=== PATIENT | female | born 1970 | race Asian ===

== ENCOUNTER 2024-07-29 21:21 | Emergency (ER) | payer OTHER, SELFPAY ==
[2024-07-29 21:27] VITALS: BP 143/80
--- NOTE | 2024-07-29 22:12 | ED.GENMED ---
History of Present Illness
<DIONE Quick - Last Filed: 07/30/24 00:35>
General
Chief Complaint: Facial Problem
Exam Limitations: none
Time Seen by Provider: 07/29/24 21:43
Nursing documentation reviewed up to this point in time: agreed with
History of Present Illness
History of Present Illness:
Patient is a 53-year-old female who complains of right-sided facial pain. She reports she started with pain in the front of her right ear a couple weeks ago however this has progressively gotten worse. She now feels that throughout the right side
of her face worse when she chews. She saw her dentist and was placed on amoxicillin and took 3 doses yesterday 3 doses today and has been taking ibuprofen but continues to complain of pain. In addition to complains of mild facial swelling. She
reports she has felt mildly feverish but does not believe she had a temperature. She denies any visual deficit or change
Review of Systems
<DIONE Quick - Last Filed: 07/30/24 00:35>
Review of Systems
Allergies reviewed?: Yes
All Other Systems: ROS reviewed and negative except as documented in HPI and ROS
Constitutional: Reports no symptoms; Denies fatigue or chills
EENT: Reports other (right sided facial pain / pain around right ear )
Respiratory: Reports no symptoms
Cardiac: Reports no symptoms
ABD/GI: Reports no symptoms
Musculoskeletal: Reports no symptoms
Skin: Reports no symptoms
Neurological: Reports no symptoms
Psychiatric: Reports no symptoms
Phy Exam
<DIONE Quick - Last Filed: 07/30/24 00:35>
General Physical Exam
General Presentation: no apparent distress
General age: appears stated age
General Skin: warm and dry
General Habitus: normal
General Mental: alert
General Hydration: appears well hydrated
ENT Exam
ENT Exam: EOMI, TM's normal, pharynx normal, neck supple and other (no trismus no obvious swelling to face, normal right TM no tooth pain or gum swelling pain over TMJ with opening mouth non tender over temporal region )
Eye Exam
Eye Exam: PERRL and EOMI
Eye Exam General: PERRL: bilateral and EOM intact: bilateral
Pupil Exam: Bilateral: round and reactive
Neurological Exam
Neurological Exam: alert and oriented x3
Musculoskeletal Exam
Musculoskeletal Exam: full ROM
Skin Exam
Skin Exam: normal color and warm/dry
Psychiatric Exam
Psychiatric Exam: normal mood/affect
Course
<DIONE Quick - Last Filed: 07/30/24 00:35>
Orders/Labs/Results
Orders:
Orders
07/29/24 22:13
CT Facial Bones W/ Iv Contrast Urgent
Comment:
Reason For Exam: right sided facial pain
IV Insert/Care/Rem.- Treatment PRN
0.9% Sodium Chloride 1000 ml [Nss] 1,000 ml IV BOLUS
07/29/24 22:24
Complete Blood Count/With Diff Urgent
Comprehensive Metabolic Panel Urgent
Erythrocyte Sed Rate Urgent
Comment: ADD ON
07/29/24 22:33
Add On- LAB Urgent
Tests Added?: sed rate
07/30/24 00:29
Prednisone [Deltasone] 50 mg PO NOW STA
Abnormal Lab Results
07/29/24
22:24
RBC 3.95 L 10^6/uL
(4.20-5.40)
Hgb 11.9 L g/dL
(12.0-16.0)
Hct 36.0 L %
(37.0-47.0)
MPV 13.5 H fL
(7.4-10.4)
ESR 23 H mm/hour
(0-20)
Chloride 108 H mmol/L
(98-107)
Creatinine 0.5 L mg/dL
(0.6-1.0)
Glucose 104 H mg/dl
(70-99)
07/29/24 22:24
07/29/24 22:24
Vital Signs
Initial and Last Documented VS:
Initial Vital Signs
Temp Pulse Resp BP Pulse Ox
97.7 F 74 20 143/80 99
07/29/24 21:27 07/29/24 21:27 07/29/24 21:27 07/29/24 21:27 07/29/24 21:27
Last Documented Vital Signs
Temp Pulse Resp BP Pulse Ox
97.7 F 74 20 140/86 100
07/29/24 21:27 07/29/24 21:27 07/29/24 21:27 07/29/24 22:28 07/29/24 22:45
Lathe Setup Operator consulted with Physician
Lathe Setup Operator consulted with physician?: Yes
Name of Physician Consulted: Billie
<Bridger Wise, DO - Last Filed: 07/30/24 00:32>
Orders/Labs/Results
Orders:
Orders
07/29/24 22:13
CT Facial Bones W/ Iv Contrast Urgent
Comment:
Reason For Exam: right sided facial pain
IV Insert/Care/Rem.- Treatment PRN
0.9% Sodium Chloride 1000 ml [Nss] 1,000 ml IV BOLUS
07/29/24 22:24
Complete Blood Count/With Diff Urgent
Comprehensive Metabolic Panel Urgent
Erythrocyte Sed Rate Urgent
Comment: ADD ON
07/29/24 22:33
Add On- LAB Urgent
Tests Added?: sed rate
07/30/24 00:29
Prednisone [Deltasone] 50 mg PO NOW STA
Abnormal Lab Results
07/29/24
22:24
RBC 3.95 L 10^6/uL
(4.20-5.40)
Hgb 11.9 L g/dL
(12.0-16.0)
Hct 36.0 L %
(37.0-47.0)
MPV 13.5 H fL
(7.4-10.4)
ESR 23 H mm/hour
(0-20)
Chloride 108 H mmol/L
(98-107)
Creatinine 0.5 L mg/dL
(0.6-1.0)
Glucose 104 H mg/dl
(70-99)
07/29/24 22:24
07/29/24 22:24
Vital Signs
Initial and Last Documented VS:
Initial Vital Signs
Temp Pulse Resp BP Pulse Ox
97.7 F 74 20 143/80 99
07/29/24 21:27 07/29/24 21:27 07/29/24 21:27 07/29/24 21:27 07/29/24 21:27
Last Documented Vital Signs
Temp Pulse Resp BP Pulse Ox
97.7 F 74 20 140/86 100
07/29/24 21:27 07/29/24 21:27 07/29/24 21:27 07/29/24 22:28 07/29/24 22:45
<DIONE Quick - Last Filed: 07/30/24 00:35>
MDM/Problems Addressed
Differential Diagnosis Includes:
Not limited to abscess, TMJ
MDM/Problems Addressed:
Patient is a 51-year-old female who complains of right-sided facial pain. She started complaining of pain in front of her right ear and was not sure if it was her teeth this started a couple weeks ago however symptoms have worsened. She saw her
dentist several days ago and has taken 6 doses of amoxicillin. She denies any fever chills but does continue to complain of right-sided facial pain worse with chewing on exam she has no acute distress no obvious facial swelling no fever no trismus.
No visual deficit nontender over temporal artery not consistent with temporal arteritis patient describes pain around the temporomandibular joint
CT neg for abscess . Pt eval by DR Wise ; possibilities include TMJ will DC with steroids. Patient to continue on antibiotics.
<DIONE Quick - Last Filed: 07/30/24 00:35>
*Pulse Oximetry
Patient hypoxic: no
*Critical Care Note
Total Time (30-74mins, 75-104mins- exclusive of procedures): Not Applicable
ED Attending Note
<DIONE Quick - Last Filed: 07/30/24 00:35>
-
Portions of this chart may have been created with voice recognition software.� Occasional wrong word or��sound alike� substitutions may have occurred due to the inherent limitations of voice recognition software.
<Bridger Wise DO - Last Filed: 07/30/24 00:32>
ED Attending Note
Patient seen and examined by attending physician: Yes
I performed the substantive portion of visit, reviewed & personally made and approve the management plan that is documented in note by myself or ANGELES.: Yes
ED Attending Note:
Patient is a healthy 53-year-old female who does not smoke or have any medical problems who presents with pain on the right side of her face. Started few weeks ago in the right ear and is progressed to involve the whole right side of her face.
Pain is made worse with chewing. Patient saw dentist and was placed on amoxicillin. Patient denies any difficulty swallowing. Patient denies any visual or balance issues. Patient denies any decrease in hearing or vertigo. On physical exam
patient is neurologically intact. TMs intact and clear. Nares patent and clear. Patient's extraocular muscles intact. Patient seems to have some point tenderness around the right TMJ. There is no tenderness with traction on the earlobe or
palpating the tragus. Patient's dentition and gums are unremarkable. Sublingual area is unremarkable. Palpation of the neck is supple without adenopathy in the submandibular region or in the anterior cervical region. Stensen's duct is without
lesion. Dentition nontender with palpation no apparent caries. Appears patient has TMJ. Workup is negative. Patient referred to ENT.
Discharge Plan
Departure
Patient Disposition: Home (Routine Discharge)
Date of Disposition: 07/30/24
Time of Disposition: 00:32
Patient with high blood pressure during this ER visit?: Yes
Covid-19: Not Applicable
Discharge Problem:
TMJ (temporomandibular joint disorder)
Instructions: Temporomandibular joint (TMJ) disorders
Prescriptions:
New
prednisone 50 mg tablet
50 mg PO DAILY Qty: 5 0RF
Referrals:
Flavio Sanchez MD [Family Provider] -
Hi Moise MD [Active] -
Activity Restrictions/Additional Instructions:
As discussed it is recommended that you see sugarcane research technician for evaluation for possible TMJ. A prescription for steroids was sent to your pharmacy to take for the next 5 days. Take as directed. Return if any worsening of symptoms,
if increased pain fever chills.
Interventions
Interventions:
*Risk Screen - Suicide Last Done: 07/29/24 21:31
*General Assessment Last Done: 07/29/24 23:00
ED- Neurological Assessment Last Done: 07/29/24 23:00
ED-Skin Assessment Last Done: 07/29/24 23:00
Discharge Date and Time
Print Language: MALIAN
[2024-07-29] MEDS: NSS 1000 IV (22:17)
[2024-07-29 22:28] VITALS: BP 140/86
[2024-07-29 22:41] LABS: % Basophils 0.5 % (0-2); % Eosinophils 0.7 % (0-6); % Immature Granulocytes 0.2 % (0-0.5); % Lymphocytes 38.3 % (20.5-51.1); % Monocytes 7.6 % (1.7-9.3); % Neutrophils 52.7 % (42.2-75.2); Absolute Lymphocytes 2.3 10^3/uL (1.2-3.4); Absolute Monocytes 0.5 10^3/uL (0.1-0.6); Absolute Neutrophils 3.1 10^3/uL (1.4-6.5); Hemoglobin 11.9 g/dL (12.0-16.0); Mean Corp Hgb Conc. 33.1 g/dL (33.0-37.0); Mean Corpuscular Hgb 30.1 pg (27.0-31.0); Mean Corpuscular Volume 91.1 fL (81.0-99.0); Mean Platelet Volume 13.5 fL (7.4-10.4); Nucleated Red Blood Cells % 0 %; Platelet Count 133 10^3/uL (130-400); Red Blood Cell Count 3.95 10^6/uL (4.20-5.40); Red Cell Dist. Width 12.9 % (11.5-14.5); White Blood Cell Count 5.9 10^3/uL (4.8-10.8)
[2024-07-29 22:52] LABS: ALT (SGPT) 24 U/L (0-35); AST (SGOT) 34 U/L (14-36); Alkaline Phosphatase 101 U/L (38-126); Blood Urea Nitrogen 17 mg/dl (7-17); Calcium 9.1 mg/dl (8.4-10.2); Carbon Dioxide 25 mmol/L (22-30); Chloride 108 mmol/L (98-107); Glucose 104 mg/dl (70-99); Potassium 4.5 mmol/L (3.5-5.1); Sodium 141 mmol/L (135-145); Total Bilirubin 0.3 mg/dl (0.2-1.3); Total Protein 6.9 g/dl (6.3-8.2); eGFR > 60.00
[2024-07-29 22:58] LABS: Erythrocyte Sed Rate 23 mm/hour (0-20)
[2024-07-30] MEDS: DELTASONE 50 MG PO (00:42)
== END 2024-07-30 00:58 | disposition home or self-care (01) ==
LOC: EMR 21:21
PROVIDERS: Nurse Practitioner; EMERGENCY PHYSICIAN Emergency Medicine; FAMILY PHYSICIAN Internal Medicine
DX: M26.601 Right temporomandibular joint disorder, unspecified (principal)
CPT/HCPCS: 99284; 96360; 70487; 80053; 85025; 85652; Q9967

== ENCOUNTER 2025-08-12 14:21 | Emergency (ER) | payer SELFPAY ==
[2025-08-12 14:44] VITALS: BP 140/78
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
[2025-08-12 16:10] VITALS: BMI 26.0
[2025-08-12 18:10] VITALS: BP 140/69
== END 2025-08-12 19:20 | disposition home or self-care (01) ==
LOC: EMR 14:21
PROVIDERS: EMERGENCY PHYSICIAN Emergency Medicine; FAMILY PHYSICIAN Internal Medicine
DX: S16.1XXA Strain of muscle, fascia and tendon at neck level, initial encounter (principal); V43.52XA Car driver injured in collision with other type car in traffic accident, initial encounter; Y92.410 Unspecified street and highway as the place of occurrence of the external cause
CPT/HCPCS: 99284; 70450; 72125; 73564